=== PATIENT | female | born 1970 | race African-American/Black ===

== ENCOUNTER 2018-07-23 18:20 | Emergency (ER) | payer MEDICAID ==
[~2018-07-23] VITALS: Ht 167.6 cm; Wt 65.0 kg
[2018-07-23] MEDS ORDERED: DIPHENHYDRAMINE 25MG CAPSULE PO ONE (20:30)
[2018-07-23] MEDS ORDERED: TRAMADOL 50MG TABLET PO ONE (20:30)
[2018-07-23] MEDS ORDERED: ONDANSETRON 4MG ODT PO ONE (20:45)
[2018-07-23 22:21] VITALS: BP 117/64
== END 2018-07-23 22:26 | disposition home or self-care (01) ==
LOC: ER 18:20
DX: M79.631 Pain in right forearm (principal); M79.604 Pain in right leg; M54.9 Dorsalgia, unspecified; K08.89 Other specified disorders of teeth and supporting structures; Z85.3 Personal history of malignant neoplasm of breast; Z90.710 Acquired absence of both cervix and uterus; V49.88XA Car occupant (driver) (passenger) injured in other specified transport accidents, initial encounter; Y93.89 Activity, other specified; Y92.89 Other specified places as the place of occurrence of the external cause; Y99.8 Other external cause status
CPT/HCPCS: 71045; 72070; 72100; 73090; 73590; 99284; Q0162; Q0163